=== PATIENT | male | born 1985 | race Two or more races ===

== ENCOUNTER 2018-01-26 09:47 | Emergency (ER) | payer OTHER ==
[2018-01-26 09:56] VITALS: BP 136/79; PULSE 83; TEMP 98.3; BMI 25.8
--- NOTE | 2018-01-26 10:16 | PDOC ---
Suture Removal/Wound Check HPI - History of Present Illness Chief Complaint: Suture/Staple Removal (other) Stated Complaint: FALL/INJURY Time Seen by Provider: 01/26/18 09:59 History Source: Yes: Patient Exam Limitations: Yes: No Limitations Treated at: Other ED ("A hospital in [place]. I cannot remember the name") - Previous ED Treatment Tetanus Immunization: Yes: Up to Date (Given when he got the stitches) Past History - Travel Traveled outside of the country in the last 30 days: No Close contact w/someone who was outside of country & ill: No - Past Medical History Allergies/Adverse Reactions: Allergies Allergy/AdvReac Type Severity Reaction Status Date / Time No Known Allergies Allergy Verified 01/26/18 09:49 Home Medications: Ambulatory Orders Ibuprofen 600 mg PO Q6H #30 tablet 01/26/18 Tramadol HCl 50 mg PO BID #10 tablet MDD 2 01/26/18 COPD: No - Suicide/Smoking/Psychosocial Hx Smoking History: Never smoked Have you smoked in the past 12 months: No Information on smoking cessation initiated: Yes Hx Alcohol Use: No Drug/Substance Use Hx: No Substance Use Type: None Suture Removal/Wound Check PE - Physical Exam Laceration/Wound Check Symptoms: reports: Numbness (distal third finger) Current Severity Level: None Maximum Severity Level: None Pain Localization: None *Physical Exam - Vital Signs Last Vital Signs Temp Pulse Resp BP Pulse Ox 98.3 F 83 16 136/79 100 01/26/18 09:50 01/26/18 09:50 01/26/18 09:50 01/26/18 09:50 01/26/18 09:50 *DC/Admit/Observation/Transfer Diagnosis at time of Disposition: Visit for suture removal Right shoulder pain Qualifiers: Chronicity: acute Qualified Code(s): M25.511 - Pain in right shoulder - Discharge Dispostion Disposition: HOME Condition at time of disposition: Stable Decision to Admit order: No - Referrals Referrals: Talha Reinoso MD [Staff Physician] - - Patient Instructions Printed Discharge Instructions: DI for Suture Removal, DI for Shoulder Pain Additional Instructions: You had your sutures removed today. Please use bacitracin on the site for the next week. Avoid soaking the area with water for 1 more week as to what the wound fully heal. Follow-up with her primary care doctor as needed You also have right shoulder pain You need to follow up with orthopedics, a shoulder specialist. A referral has been provided to you. You may take ibuprofen 600mg every 6 hours as needed for pain Return to the emergency department if you develop fevers, drainage from the site , increased pain, or have any changes in your symptoms. Te quitaron las suturas hoy. Por favor, use bacitracin en el sitio para la prxima semana. Evite remojar el michelle con agua viktor 1 semana ms para que la herida se cure completamente. Seguimiento con moreno mdico de atencin primaria segn sea necesario Tambin tienes dolor en el hombro derecho. Es necesario hacer un seguimiento con ortopedia, un especialista en hombros. Se le mosley proporcionado adarsh referencia. Puede rosa ibuprofeno 600 mg cada 6 horas segn sea necesario para el dolor. Regrese al departamento de emergencias si desarrolla fiebre, drenaje del sitio, aumento del dolor o si tiene algn cambio en graciela sntomas. - Post Discharge Activity Forms/Work/School Notes: Back to Work
== END 2018-01-26 11:04 | disposition home or self-care (01) ==
LOC: JERFT 09:47
DX: Z48.02 Encounter for removal of sutures (principal)
CPT/HCPCS: 99281-25

== ENCOUNTER 2018-12-26 22:56 | Emergency (ER) | payer SELFPAY ==
[2018-12-26 23:53] VITALS: BP 121/84; PULSE 67; TEMP 98.1; BMI 25.8
--- NOTE | 2018-12-27 00:47 | PDOC ---
History of Present Illness - General Chief Complaint: Pain Stated Complaint: SHOULDER PAIN Time Seen by Provider: 12/27/18 00:43 History Source: Patient - History of Present Illness Initial Comments: 12/27/18 00:49 33 year old male right shoulder pain and history of fracture 1 year ago currently in [facility] waiting for surgery to be approved. Last physical therapy 1 week ago. denies trauma or injury. patient reports that he took ibuprofen with no pain relief. denies fever/ chills Past History - Past Medical History Allergies/Adverse Reactions: Allergies Allergy/AdvReac Type Severity Reaction Status Date / Time No Known Allergies Allergy Verified 01/26/18 09:49 Home Medications: Ambulatory Orders traMADol HCL [Ultram -] 50 mg PO BID #10 tablet MDD 2 01/26/18 Oxycodone HCl/Acetaminophen [Percocet 5-325 mg Tablet] 1 - 2 tab PO Q6H PRN #7 tab MDD 4 12/27/18 COPD: No - Psycho Social/Smoking Cessation Hx Smoking History: Never smoked Have you smoked in the past 12 months: No Information on smoking cessation initiated: No Hx Alcohol Use: No Drug/Substance Use Hx: No Substance Use Type: None Review of Systems - Review of Systems Able to Perform ROS?: Yes Is the patient limited Georgian proficient: No Constitutional: No: Symptoms Reported, See HPI, Chills, Diaphoresis, Fever, Loss of Appetite, Malaise, Night Sweats, Weakness, Weight Stable, Unintentional Wgt. Loss, Unexplained wgt Loss, Other *Physical Exam - Vital Signs Last Vital Signs Temp Pulse Resp BP Pulse Ox 98.1 F 67 18 121/84 100 12/26/18 23:30 12/26/18 23:30 12/26/18 23:30 12/26/18 23:30 12/26/18 23:30 - Physical Exam General Appearance: Yes: Appropriately Dressed Extremity: positive: Other (limited rom to right shoulder, no deformity, able to touch the opposite shoulder) Integumentary: positive: Normal Color, Dry, Warm Neurologic: positive: Fully Oriented, Alert, Normal Mood/Affect ED Progress Note - Progress Note Progress Note: 12/27/18 04:12 A: acute on chronic right shoulder pain P: pain control ortho follow up Discharge - Discharge Information Problems reviewed: Yes Clinical Impression/Diagnosis: Right shoulder pain Qualifiers: Chronicity: acute Qualified Code(s): M25.511 - Pain in right shoulder Disposition: HOME - Additional Discharge Information Prescriptions: Oxycodone HCl/Acetaminophen [Percocet 5-325 mg Tablet] 1 - 2 tab PO Q6H PRN #7 tab MDD 4 PRN Reason: Pain Prescription Drug Monitoring Program (I-STOP) results: I-STOP not reviewed - Follow up/Referral Referrals: ON STAFF,NOT [Primary Care Provider] - - Patient Discharge Instructions Patient Printed Discharge Instructions: DI for Prescription Opioid Use Additional Instructions: 2. Use pain medication as ordered. 3. Please is to followup with orthopedic Dr. Garibay or pain management for evaluation within a week if no improvement. 4. Ice or heat using sling for comfort Additional Instructions: * Please call your personal physician to report your Emergency Department visit and to report your progress, if any. * If there is no improvement in symptoms in 2 days call your physician. * Return to the Emergency Department for any worsening symptoms. - Post Discharge Activity Work/Back to School Note: Back to Work
== END 2018-12-27 01:26 | disposition home or self-care (01) ==
LOC: JER 22:56
DX: M25.511 Pain in right shoulder (principal); Z87.81 Personal history of (healed) traumatic fracture
CPT/HCPCS: 99281-25

== ENCOUNTER 2020-04-27 17:43 | Emergency (ER) | payer OTHER ==
[2020-04-27 18:08] VITALS: BP 136/94; PULSE 67; TEMP 98; BMI 27.3
[2020-04-27] MEDS ORDERED: ACETAMINOPHEN 325 MG TABLET (FP) PO ONE (19:55)
[2020-04-27] MEDS ORDERED: LIDOCAINE 5% TOPICAL PATCH TP ONE (19:57)
[2020-04-27] MEDS ORDERED: LIDOCAINE 5% TOPICAL PATCH ONE (20:22)
[2020-04-27] MEDS ORDERED: ACETAMINOPHEN 325 MG TABLET (FP) ONE (20:22)
[2020-04-27] MEDS ORDERED: LIDOCAINE PATCH REMOVAL MC SCH (22:00)
== END 2020-04-27 21:10 | disposition home or self-care (01) ==
LOC: JER 17:43
DX: R07.81 Pleurodynia (principal)
CPT/HCPCS: 71046-TC-FY; 99283-25

== ENCOUNTER 2022-10-05 17:58 | Emergency (ER) | payer OTHER ==
[2022-10-05 18:18] VITALS: BP 150/87; PULSE 77; RESP 18; TEMP 98.3; BMI 28.1
== END 2022-10-05 20:33 | disposition home or self-care (01) ==
LOC: JERFT 17:58
PROC: 0HQ7XZZ Repair Abdomen Skin, External Approach (ICD-10-PCS; principal; 2022-10-05)
DX: S31.114A Laceration without foreign body of abdominal wall, left lower quadrant without penetration into peritoneal cavity, initial encounter (principal); W25.XXXA Contact with sharp glass, initial encounter
CPT/HCPCS: 99283-25

== ENCOUNTER 2022-10-07 15:34 | Emergency (ER) | payer OTHER ==
[2022-10-07 15:49] VITALS: BP 129/67; PULSE 77; RESP 17; TEMP 98.5; BMI 29.0
== END 2022-10-07 17:25 | disposition home or self-care (01) ==
LOC: JERFT 15:34 → JER 15:34 → JERFT 17:25
DX: Z48.00 Encounter for change or removal of nonsurgical wound dressing (principal)
CPT/HCPCS: 99281-25

== ENCOUNTER 2022-10-21 09:01 | Emergency (ER) | payer OTHER ==
[2022-10-21 09:13] VITALS: BMI 29.0
[2022-10-21 09:33] VITALS: BP 130/84; PULSE 66; RESP 16; TEMP 98.1
[2022-10-21] MEDS ORDERED: BACITRACIN ZINC 15 GM TUBE TOPICAL OINTMENT TP ONE (09:34)
[2022-10-21] MEDS ORDERED: BACITRACIN ZINC 15 GM TUBE TOPICAL OINTMENT ONE (09:42)
[2022-10-21] MEDS ORDERED: LIDOCAINE 5% TOPICAL PATCH ONE (09:44)
== END 2022-10-21 09:39 | disposition home or self-care (01) ==
LOC: JER 09:01 → JERFT 09:01
DX: Z48.02 Encounter for removal of sutures (principal)
CPT/HCPCS: 99281-25

== ENCOUNTER 2024-03-22 15:33 | Emergency (ER) | payer SELFPAY ==
[2024-03-22 15:37] VITALS: BP 138/85; PULSE 86; RESP 18; TEMP 97.9; BMI 29.0
[2024-03-22 16:29] LABS: BASO % 0.6 % (0-2.0); EOS % 2.2 % (0-4.5); HEMATOCRIT 43.9 % (35.4-49); HEMOGLOBIN 14.8 GM/dL (11.7-16.9); LYMPH % 32.9 % (8-40); MCH 26.9 pg (25.7-33.7); MCHC 33.7 g/dl (32.0-35.9); MEAN CELL VOLUME 79.9 fl (80-96); MEAN PLT VOLUME 8.6 fl (7.5-11.1); MONO % 8.1 % (3.8-10.2); NEUT % 56.2 % (42.8-82.8); PLATELET COUNT 293 10^3/uL (134-434); RBC 5.49 M/mm3 (4.00-5.60); RDW 13.8 % (11.9-15.9); WHITE BLOOD COUNT 10.1 K/mm3 (4.0-10.0)
[2024-03-22 17:23] LABS: CALCIUM 9.5 mg/dL (8.5-10.1)
[2024-03-22 17:24] LABS: BLOOD UREA NITROGEN 11.8 mg/dL (7-18)
[2024-03-22 17:27] LABS: CREATININE 1.2 mg/dL (0.55-1.3)
[2024-03-22 17:29] LABS: BILIRUBIN,TOTAL 0.4 mg/dL (0.2-1)
[2024-03-22 17:44] LABS: HIV INTERPRETATION NEGATIVE (NEGATIVE)
== END 2024-03-22 18:58 | disposition home or self-care (01) ==
LOC: JER 15:33
DX: R07.9 Chest pain, unspecified (principal)
CPT/HCPCS: 36415; 71046-TC-FY; 80053; 84443; 84484; 85025; 86803; 87389; 93005; 93010; 99285-25